=== PATIENT | male | born 1965 | race African-American/Black ===

== ENCOUNTER 2020-05-05 06:14 | Emergency (ER) | payer MEDICAID ==
[~2020-05-05] VITALS: Ht 182.9 cm; Wt 122.0 kg
[2020-05-05] MEDS ORDERED: SODIUM CHLORIDE 0.9% 1,000 ML IV ONE (06:56)
[2020-05-05] MEDS ORDERED: IBUPROFEN 600MG TABLET PO STA (06:56)
[2020-05-05] MEDS ORDERED: KETOROLAC 15MG/ML VIAL IV ONE (07:00)
[2020-05-05] MEDS ORDERED: MORPHINE SULFATE 4 MG/ML CPJ (NOT FOR IM USE) IV ONE ×2 (07:15→10:00)
[2020-05-05] MEDS ORDERED: ONDANSETRON HCL 4MG/2ML INJ IV ONE ×2 (07:15→10:00)
[2020-05-05 08:14] LABS: EOSINOPHILS % 4.6 % (0.0-5.0); HEMATOCRIT. 46.9 % (42.0-52.0); HEMOGLOBIN. 15.9 g/dL (14.0-18.0); LYMPHOCYTES % 36.6 % (20.0-50.0); MEAN CORPUSCULAR HEMOGLOBIN 29.8 pg (28.0-32.0); MEAN CORPUSCULAR VOLUME 87.7 fL (80.0-94.0); MEAN PLATELET VOLUME 8.3 fl (7.4-10.4); MONOCYTES % 11.1 % (2.0-8.0); NEUTROPHILS % 46.7 % (40.0-76.0); PLATELET 316 x1000/uL (130-400); RED BLOOD CELL COUNT 5.35 mill/uL (4.7-6.1); RED CELL DISTRIBUTION WIDTH 13.6 % (11.6-14.6)
[2020-05-05 08:27] LABS: PROTHROMBIN TIME 10.5 sec (9.6-11.0)
[2020-05-05 11:46] LABS: CHLORIDE 108 mEq/L (98-107)
[2020-05-05 12:45] VITALS: BP 143/87
== END 2020-05-05 12:45 | disposition home or self-care (01) ==
LOC: ER 06:14
DX: K42.9 Umbilical hernia without obstruction or gangrene (principal); J45.909 Unspecified asthma, uncomplicated
CPT/HCPCS: 36415; 80053; 83690; 85025; 85610; 96374; 96375; 96376; 99285; J1885; J2270; J2405; J7030; Z7610